=== PATIENT | male | born 1940 | race Caucasian/White ===

== ENCOUNTER → 2016-08-27 | Outpatient (CLI) | payer OTHER | LOC: BHLMT 10:30 | PROVIDERS: ATTEND Internal Medicine Interventional Cardiology | DX: I48.0 Paroxysmal atrial fibrillation (principal); I25.10 Atherosclerotic heart disease of native coronary artery without angina pectoris; I10 Essential (primary) hypertension; E78.00 Pure hypercholesterolemia, unspecified | CPT/HCPCS: 93005-PO ==

== ENCOUNTER → 2017-08-19 | Outpatient (CLI) | payer OTHER | LOC: BHLMT 14:00 | PROVIDERS: ATTEND Internal Medicine Interventional Cardiology | DX: I48.91 Unspecified atrial fibrillation (principal); I25.10 Atherosclerotic heart disease of native coronary artery without angina pectoris | CPT/HCPCS: 78452; 93017; A9500; J2785 ==

== ENCOUNTER 2017-08-31 08:38 | Day surgery (SDC) | payer OTHER, MEDICARE ==
[2017-08-31] MEDS ORDERED: BENZOCAINE UNIT DOSE SPRAY HURRICAINE MM ONE (08:46)
[2017-08-31] MEDS ORDERED: ATROPINE SULFATE 1 MG/10 ML SYR IVP ONE (08:46)
[2017-08-31] MEDS ORDERED: NS 500 ML IV ONE (08:46)
--- NOTE | 2017-08-31 09:03 | CPEKG ---
Heart Rate: 102 RR Interval: 588 QRSD Interval: 128 QT Interval: 428 QTC Interval: 558 QRS [place]: 66 T Wave Mobile: 13 EKG Severity - ABNORMAL ECG - EKG Impression: ATRIAL FIBRILLATION EKG Impression: RIGHT BUNDLE BRANCH BLOCK Electronically Signed By: Dandre Raymundo 31-Aug-2017 12:41:18
[2017-08-31 09:29] LABS: INR 2.44 (0.83-1.16); PROTIME(PATIENT) 26.5 SEC (12.0-15.0)
--- NOTE | 2017-08-31 09:51 | PDHPUP ---
History & Physical Update H&P update statement: This history and physical update is based on an assessment of the patient which was completed after admission or registration (within 24 hours), but prior to the surgery/procedure. H&P update: H&P reviewed & patient examined, no change in patient's condition since H&P completed
[2017-08-31] MEDS ORDERED: MIDAZOLAM 2 MG/2 ML VIAL ONE (10:01)
--- NOTE | 2017-08-31 10:01 | PDANEPAE ---
ANE History of Present Illness New onset atrial fibrillation ANE Past Medical History - Pulmonary History Hx Oxygen in Use at Home: No Hx Sleep Apnea: No ANE Review of Systems Review of Systems: ANE Patient History - Allergies Allergies/Adverse Reactions: No Known Allergies Allergy (Unverified 06/01/12 19:17) - Home Medications Home Medications: Aspirin [Aspirin 81mg (OTC)] 81 mg PO HS 06/01/12 [Last Taken 05/31/12 22:00] DILTIAZEM HCL [Cartia XT 120mg] 120 mg PO DAILY@1200 06/01/12 [Last Taken 12:00] Gluc Ruiz/Chondro Ruiz A/Vit C/Mn [Glucosamine 1,500 Complex Cap] 1 each PO 0800, 1800 06/01/12 [Last Taken 06/01/12 18:00] LEVOTHYROXINE SODIUM [Levoxyl 88mcg] 88 mcg PO DAILY06 06/01/12 [Last Taken 07/13 06:00] Lactobacillus Acidophilus [Acidophilus] 1 each PO DAILY 06/01/12 [Last Taken 07/13 08:00] Multivitamins [Multivitamin (OTC)] 1 each PO DAILY 06/01/12 [Last Taken 08:00] Niacin ER [Niaspan 500 mg (RX)] 500 mg PO HS 06/01/12 [Last Taken 05/31/12 22:00 ] [place]-3 Fatty Acids/Fish Oil [[facility] 3 1,000 mg Softgel] 1 each PO 0800,1800 07/13 [Last Taken 06/01/12 18:00] Pharmacist Completed 06-01-12 06/01/12 [Last Taken Unknown] Simvastatin [Zocor 20 mg (RX)] 20 mg PO DAILY18 06/01/12 [Last Taken 06/01/12 18 :00] Warfarin Sodium [Coumadin 2.5MG (*)] 2.5 mg PO SUTUWETHSA@1800 06/01/12 [Last Taken 06/01/12 18:00] Warfarin Sodium [Coumadin] 5 mg PO MOFR@1800 06/01/12 [Last Taken 05/30/12 18:00 ] - Smoking Hx Smoking Status: Former smoker ANE Labs/Vital Signs - Labs Result Diagrams: 08/31/17 09:10 - Vital Signs Height: 176.2 cm Weight: 79.9 kg ANE Physical Exam - Airway Neck exam: FROM Mallampati Score: Class 2 Mouth exam: normal dental/mouth exam, lee - Pulmonary Pulmonary: no respiratory distress, no rales or rhonchi, clear to auscultation - Cardiovascular Cardiovascular: irregularly irregular - ASA Status ASA Status: III ANE Anesthesia Plan Anesthesia Plan: GA with mask
[2017-08-31] MEDS ORDERED: PROPOFOL 200 MG/20 ML VIAL ONE (10:02)
[2017-08-31] MEDS ORDERED: NALOXONE HCL 0.4 MG/ML INJ IVP PRN (10:33)
--- NOTE | 2017-08-31 10:33 | POSTANESTH ---
Post Anesthetic Evaluation Cardiovascular Status: Normal, Stable Respiratory Status: Normal, Stable Level of Consciousness/Mental Status: Can Participate in Eval Pain Control: Adequate, Prn Tx Ordered Nausea/Vomiting Control: Adequate, Prn Tx Ordered Complications Possibly Related to Anesthesia: None Noted
--- NOTE | 2017-08-31 10:40 | PDTEE1 ---
MOIN Cardioversion Procedure Procedure: electrical cardioversion, transesophageal echo Indications: atrial fibrillation Consent: signed and in chart Anticoagulation: warfarin Procedural Details: Pads were placed in anterior-posterior position. MONI probe was advanced and standard images obtained. There is no evidence of left atrial or left atrial appendage thrombus. Synchronized cardioversion attempt #1: 200J Results: normal sinus rhythm Conclusions: successful MONI cardioversion
--- NOTE | 2017-08-31 10:48 | CPEKG ---
Heart Rate: 53 RR Interval: 1132 P-R Interval: 204 QRSD Interval: 124 QT Interval: 476 QTC Interval: 447 P [place]: 70 QRS [place]: 43 T Wave [place]: 16 EKG Severity - ABNORMAL ECG - EKG Impression: SINUS RHYTHM EKG Impression: RIGHT BUNDLE BRANCH BLOCK Electronically Signed By: Dandre Raymundo 31-Aug-2017 12:41:02
== END 2017-08-31 12:02 | disposition home or self-care (01) ==
LOC: FCATH 08:38
PROVIDERS: ATTEND Internal Medicine Interventional Cardiology
PROC: B245ZZ4 Ultrasonography of Left Heart, Transesophageal (ICD-10-PCS; principal; 2017-08-31)
PROC: 5A2204Z Restoration of Cardiac Rhythm, Single (ICD-10-PCS; principal; 2017-08-31)
DX: I48.1 Persistent atrial fibrillation (principal); I25.10 Atherosclerotic heart disease of native coronary artery without angina pectoris; E78.00 Pure hypercholesterolemia, unspecified; I10 Essential (primary) hypertension; Z95.5 Presence of coronary angioplasty implant and graft; Z79.01 Long term (current) use of anticoagulants
CPT/HCPCS: J2250; J2704

== ENCOUNTER 2017-11-15 06:54 | Inpatient (IN) | payer OTHER, MEDICARE ==
[2017-11-15] MEDS ORDERED: BENZOCAINE UNIT DOSE SPRAY HURRICAINE MM ONE (06:58)
[2017-11-15] MEDS ORDERED: ATROPINE SULFATE 1 MG/10 ML SYR IVP ONE (06:58)
[2017-11-15] MEDS ORDERED: NS 500 ML IV ONE (06:58)
[2017-11-15] MEDS ORDERED: MIDAZOLAM 2 MG/2 ML VIAL IVP ONE (06:58)
[2017-11-15] MEDS ORDERED: fentaNYL 100 MCG/2 ML INJ IVP ONE (06:58)
--- NOTE | 2017-11-15 07:13 | CPEKG ---
Heart Rate: 63 RR Interval: 952 P-R Interval: 168 QRSD Interval: 106 QT Interval: 440 QTC Interval: 451 P [place]: 66 QRS [place]: 58 T Wave [place]: 4 EKG Severity - ABNORMAL ECG - EKG Impression: SINUS RHYTHM EKG Impression: MULTIPLE VENTRICULAR PREMATURE COMPLEXES EKG Impression: INCOMPLETE RIGHT BUNDLE BRANCH BLOCK EKG Impression: NONSPECIFIC T ABNORMALITIES, LATERAL LEADS Electronically Signed By: Dandre Raymundo 15-Nov-2017 08:46:12
[2017-11-15 07:38] LABS: INR 2.39 (0.83-1.16); PROTIME(PATIENT) 26.1 SEC (12.0-15.0)
[2017-11-15] MEDS ORDERED: Herbals/Supplements -Info Only PO SCH (09:00)
[2017-11-15 09:09] LABS: PLATELET COUNT 183 10^3/uL (150-400)
[2017-11-15] MEDS: MULTIVITAMINS 1 EACH TAB PO SCH (10:31)
[2017-11-15] MEDS: SOTALOL HCL 80 MG TAB PO SCH ×2 (10:31→21:30)
[2017-11-15] MEDS: OMEGA-3 FATTY ACIDS 1,000 MG CAP PO SCH (10:31)
--- NOTE | 2017-11-15 12:36 | CPEKG ---
Heart Rate: 54 RR Interval: 1111 P-R Interval: 168 QRSD Interval: 108 QT Interval: 472 QTC Interval: 448 P [place]: 70 QRS [place]: 56 T Wave [place] [employer]: 19 EKG Severity - ABNORMAL ECG - EKG Impression: SINUS RHYTHM EKG Impression: INCOMPLETE RIGHT BUNDLE BRANCH BLOCK Electronically Signed By: Dandre Raymundo 15-Nov-2017 15:15:37
--- NOTE | 2017-11-15 13:38 | GHP ---
[f rep st] HISTORY AND PHYSICAL DATE OF ADMISSION: 11/15/2017 REASON FOR ADMISSION: 1. Paroxysmal atrial fibrillation. 2. Planned direct current cardioversion. 3. Spontaneous cardioversion to sinus rhythm. 4. Anticoagulated on warfarin. HISTORY OF PRESENT ILLNESS: The patient was seen in the office on October 06, 2017, where he and Dr. Raymundo visited about possible treatment options for his paroxysmal atrial fibrillation. Dr. Raymundo did RF abla tion in 2007. He also did flutter ablation at that time. Patient has continued to experience paroxy smal atrial fib despite being on flecainide. He does become symptomatic and experiences fatigue and heart pounding when he goes into atrial fibrillation. He recently had a DC cardioversion and reverte d back to atrial fib within 4 days. He did feel better when he was in sinus rhythm. Dr. Raymundo at that visit offered to have him come into the hospital and retry DC cardioversion and then start sotalol m anagement. They also discussed possible ablation or surgical ablation. Today on arrival, he had rev erted to sinus rhythm. Dr. Raymundo decided to admit him for sotalol loading. He and his are in agr eement with this plan. He, therefore, was admitted for the initiation of sotalol loading. PAST MEDICAL HISTORY: Coronary artery disease hypercholesterolemia, hypertension, paroxysmal atrial fibrillation, prostate cancer. PAST SURGICAL HISTORY: 1. Cochlear implants. 2. Inguinal hernia repair. 3. Prostate ectomy. MEDICATIONS: Prior to hospitalization: Acidophilus oral capsule, aspirin 81 mg extended release, di ltiazem 240 mg extended release daily, fish oil 1000 mg daily, flecainide 100 mg, glucosamine/chondro itin 750 to 600 mg tablets, takes Levoxyl 112 mcg daily, multivitamin, simvastatin 20 mg daily, warfa rin 5 mg daily. Upon admission to the hospital, flecainide is discontinued. He will be started on s otalol 120 mg twice daily. ALLERGIES: No known allergies. SOCIAL HISTORY: He has 2 children. He does drink coffee. He exercises regularly. He does not use tobacco or illicit drugs. REVIEW OF SYSTEM: CONSTITUTIONAL: He does admit to fatigue. He has no fever or weight gain. CARDI OVASCULAR: He has irregular heart beats. He has no syncope, dyspnea with exertion, or lower extremi ty edema. RESPIRATORY: Denies shortness of breath. GASTROINTESTINAL: No nausea, vomiting or reflu x. NEUROLOGIC: No altered mental status. No muscular weakness or numbness. PSYCHIATRIC:. No diff iculty sleeping. PHYSICAL EXAMINATION: VITAL SIGNS: 130/80, heart rate 88 and regular. Last weight recorded at the office 79.93. CONSTITUTIONAL: He is alert and oriented and in no distress. RESPIRATORY: No shortn ess of breath. His breathing is nonlabored. CARDIAC: Heart rate regular. No murmurs, rubs, or gal lops. EXTREMITIES: No peripheral edema noted. PSYCHIATRIC: He has normal mood and affect. LABORATORY/DIAGNOSTIC DATA: Past cardiac workup: In July of 2017, he did have a nuclear stress palma t that showed no significant reversible defect suggestive of ischemia. He was in atrial fibrillation at time of that study. EKG on admission shows regular sinus rhythm with incomplete right bundle branch block. Laboratories on admission: INR 2.39. Sodium 141, potassium 3.8, creatinine 0.9, magnesium 2.3. PLAN: 1. He will be admitted for sotalol loading starting dose 120 mg twice daily. 2. He will have EKGs 2 hours after each dose prior to the next dose of sotalol. 3. Monitor closely his heart rate and blood pressure. 4. We will plan 2 nights in the hospital for appropriate duration of sotalol loading. 5. At this time, he currently is stable with no complaints. /[id number]/MODL
--- NOTE | 2017-11-15 15:54 | PDMN ---
Medical Necessity Medical necessity: est los>2mn for symptomatic PAF on flecainide, w/fatigue and heart pounding; requires Sotalol loading with ECG's 2 hrs post dose, and close monitoring of HR and blood pressure; comorbid CAD, HLD, HTN, hx recent CV, and prostate cancer; per order and H&P 11/15/17
[2017-11-15] MEDS ORDERED: WARFARIN SODIUM 5 MG TAB PO SCH (21:00)
[2017-11-15] MEDS ORDERED: NON-FORMULARY NEW DRUG (Simvastatin [Zocor 20 Mg] 20 MG) PO SCH (21:00)
[2017-11-15] MEDS: ASPIRIN 81 MG CHEWABLE TAB PO SCH (21:34)
[2017-11-15] MEDS: GLUCOSAMINE/CHONDROITIN CAP PO SCH (21:34)
[2017-11-15] MEDS: ATORVASTATIN CALCIUM 10 MG TAB PO SCH (21:35)
--- NOTE | 2017-11-15 23:37 | CPEKG ---
Heart Rate: 48 RR Interval: 1250 P-R Interval: 160 QRSD Interval: 106 QT Interval: 496 QTC Interval: 444 P [place]: 73 QRS [place]: 70 T Wave [place]: 33 EKG Severity - ABNORMAL ECG - EKG Impression: SINUS BRADYCARDIA EKG Impression: INCOMPLETE RIGHT BUNDLE BRANCH BLOCK EKG Impression: ABNRM R PROG, CONSIDER ASMI OR LEAD PLACEMENT Electronically Signed By: Mahnaz Villarreal 16-Nov-2017 04:44:01
[2017-11-16 04:46] LABS: INR 2.55 (0.83-1.16); PROTIME(PATIENT) 27.4 SEC (12.0-15.0)
[2017-11-16] MEDS: LEVOTHYROXINE 112 MCG TAB PO SCH (06:58)
--- NOTE | 2017-11-16 10:57 | PDCARPN ---
Cardiology Progress Note Chief Complaint: ATRIAL FIBRILLATION Assessment/Plan: Assessment: Admit yesterday for Sotalol load. Tolerating fairly well. His HR has dropped into the 40 to 50's, and he does feel a bit lightheaded with position changes. Consulted with Dr Raymundo and he has advised to decrease his dose to 80 mg BID. He has been up ambulating with no problems. Will continue to monitor closely on telemetry. EKG this AM showed QTc 444. Plan: If his HR increases on lower Sotalol dose, QTc stays in range, and he has no dizziness, will plan for DC tomorrow. 11/16/17 10:52 Subjective: When I get up from sitting, I feel a little lightheaded. Reviewed/Discussed With: family, multidisciplinary team (Dr Raymundo) Time Spent with Patient: greater than 25 minutes (Direct patient evaluation, consulting case with Dr Raymundo, and coordination Care.) Time Spent with Patient: Greater than 25 minutes spent on this patients care, greater than 50% of time spent counseling, educating, and coordinating care regarding the above mentioned plan. Objective: Vital Signs (8 Hrs) Temp Pulse Resp BP Pulse Ox 11/16/17 07:33 36.6 C 47 L 12 152/81 H 95 11/16/17 04:00 36.5 C 50 L 16 132/72 H 93 Intake/Output (24 Hrs) 11/15/17 11/16/17 11/17/17 05:59 05:59 05:59 Intake Total 1080 Balance 1080 Intake: Oral (ml) 1080 Other: Weight 79.379 kg Number of Voids Toilet 2 Number of Stools Toilet 1 Result Diagrams: 11/15/17 07:20 11/16/17 03:58 - Physical Exam Constitutional: no apparent distress Cardiovascular: regular rate and rhythm, no murmurs, no rubs Respiratory: clear to auscultate bilat, no crackles, no wheezes Skin: warm, no edema Musculoskeletal: other Neurologic: AAOx3 Psychiatric: cooperative, interactive ICD10 Worksheet Patient Problems: Problems Problem Status Onset Atrial fibrillation and flutter Acute
[2017-11-16] MEDS: MULTIVITAMINS 1 EACH TAB PO SCH (11:59)
[2017-11-16] MEDS: SOTALOL HCL 80 MG TAB PO SCH ×2 (12:00→22:00)
[2017-11-16] MEDS: OMEGA-3 FATTY ACIDS 1,000 MG CAP PO SCH (12:00)
--- NOTE | 2017-11-16 13:54 | CPEKG ---
Heart Rate: 49 RR Interval: 1224 P-R Interval: 160 QRSD Interval: 110 QT Interval: 484 QTC Interval: 437 P [place]: 67 QRS [place]: 45 T Wave [place]: -1 EKG Severity - ABNORMAL ECG - EKG Impression: SINUS BRADYCARDIA EKG Impression: INCOMPLETE RIGHT BUNDLE BRANCH BLOCK Electronically Signed By: Dandre Raymundo 16-Nov-2017 16:27:26
--- NOTE | 2017-11-16 14:51 | ASMTCMCOM ---
CM Note CM Note Notes: 11/16/2017 Case Management Note Met w/pt and Guillermo [phone] to discuss d/c needs. Pt admitted for sotolol loading. Pt has 2 supportive children who live in [place]. Pt daughter Karlee [phone]. Pt son Benjamin [phone]. Pt and are independent with ADL's. They both still drive and are able to take care of the lawn or snow removal independently. There are no case management d/c needs identified. Case Management d/c poc: independent with follow up as directed. Case Management available if needs change. Date Signed: 11/16/2017 02:50 PM Electronically Signed By:Melissa Sosa RN
[2017-11-16] MEDS ORDERED: WARFARIN SODIUM 2.5 MG TAB PO SCH (21:00)
[2017-11-16] MEDS: ATORVASTATIN CALCIUM 10 MG TAB PO SCH (21:52)
[2017-11-16] MEDS: ASPIRIN 81 MG CHEWABLE TAB PO SCH (21:52)
[2017-11-16] MEDS: GLUCOSAMINE/CHONDROITIN CAP PO SCH (21:52)
--- NOTE | 2017-11-17 00:05 | CPEKG ---
Heart Rate: 48 RR Interval: 1250 P-R Interval: 160 QRSD Interval: 106 QT Interval: 492 QTC Interval: 440 P [place]: 72 QRS [place]: 65 T Wave [place]: 31 EKG Severity - ABNORMAL ECG - EKG Impression: SINUS BRADYCARDIA EKG Impression: INCOMPLETE RIGHT BUNDLE BRANCH BLOCK Electronically Signed By: Dandre Raymundo 17-Nov-2017 11:01:56
[2017-11-17] MEDS: SOTALOL HCL 80 MG TAB PO SCH ×2 (01:34→09:45)
[2017-11-17 04:26] LABS: INR 2.65 (0.83-1.16); PROTIME(PATIENT) 28.2 SEC (12.0-15.0)
[2017-11-17] MEDS: LEVOTHYROXINE 112 MCG TAB PO SCH (07:08)
[2017-11-17] MEDS: MULTIVITAMINS 1 EACH TAB PO SCH (08:19)
[2017-11-17] MEDS: OMEGA-3 FATTY ACIDS 1,000 MG CAP PO SCH (08:19)
--- NOTE | 2017-11-17 11:53 | CPEKG ---
Heart Rate: 47 RR Interval: 1277 P-R Interval: 164 QRSD Interval: 106 QT Interval: 488 QTC Interval: 432 P [place]: 72 QRS [place]: 52 T Wave [place]: 3 EKG Severity - ABNORMAL ECG - EKG Impression: SINUS BRADYCARDIA EKG Impression: INCOMPLETE RIGHT BUNDLE BRANCH BLOCK Electronically Signed By: Dandre Raymundo 17-Nov-2017 16:52:35
[2017-11-17 12:04] VITALS: BP 139/78
--- NOTE | 2017-11-18 00:55 | GDS ---
[f rep st] DISCHARGE SUMMARY ADMIT DIAGNOSES: 1. Atrial fibrillation. 2. Planned sotalol loading. DISCHARGE DIAGNOSES: 1. Atrial fibrillation. 2. Bradycardia. 3. Aborted sotalol load. COURSE OF HOSPITALIZATION: This gentleman was seen by Dr. Raymundo in the clinic, having failed several a ntiarrhythmic medications. It was decided to try sotalol with observation in the hospital. The miriam ent was in agreement with this plan. He was started on sotalol 120 mg twice daily. His heart rates did drop down into the 40s and 50s after the first 2 doses. His sotalol dose was then decreased to 8 0 mg b.i.d. on November 16, 2017. His heart rates remained in the 40s and 50s with EKGs falling in range for the QTc. On November 17, 2017, his heart rates remained in the 40s. He had developed diarrhea, whi ch is a possible side effect from sotalol. He has a history of diverticula disease, and it was decid ed to stop the sotalol. His heart rates remained in the 40s and 50s and was asymptomatic for symptom s of dizziness and lightheadedness. He did ambulate with no problems. It was decided to resume dilt iazem 240 mg daily, and he will follow up with Dr. Raymundo in 3 weeks. At time of discharge, he was feel ing well with no problems. Final EKG was stable. DISCHARGE MEDICATIONS: He has no allergies. He will go home on Zocor 20 mg daily. Aspirin 81 mg da shawna at bedtime. Coumadin 2.5 mg Wednesday, , Wednesday, and Coumadin 5 mg on Wednesday, Wednesday, , Wednesday. Multivitamin 1 daily. Herbal supplements daily. Glucosamine chondroitin 1 at bedt donn. Synthroid 112 mcg daily. [place]-3 fish oil 1000 mg daily. Cartia XT 240 mg daily. Flecainide was discontinued. EKG: On 11/17/2017, at 11:51, heart rate 47. Impression: Sinus bradycardia with incomplete right b undle branch block. DISCHARGE PLAN: 1. Resume diltiazem XL 240 mg daily. INR today was 2.65. He should have his INR rechecked norma delgado to his current schedule. 2. Follow up with Dr. Raymundo in 1 week. The office will call to make that appointment. At this time, he currently is stable for discharge. /[id number]/MODL
[2017-11-18] MEDS ORDERED: DILTIAZEM XR 240 MG CAP PO SCH (09:00)
== END 2017-11-17 14:44 | disposition home or self-care (01) | DRG 309 ==
LOC: FCATH 06:54 → F2W 06:59 → OBSVTOIN 08:43 → F2W 10:05
PROVIDERS: ADMIT Internal Medicine Cardiovascular Disease; ATTEND Internal Medicine Cardiovascular Disease
DX: I48.0 Paroxysmal atrial fibrillation (principal); K52.1 Toxic gastroenteritis and colitis; Z51.81 Encounter for therapeutic drug level monitoring; T44.7X5A Adverse effect of beta-adrenoreceptor antagonists, initial encounter; R00.1 Bradycardia, unspecified; I45.19 Other right bundle-branch block; I25.10 Atherosclerotic heart disease of native coronary artery without angina pectoris; I10 Essential (primary) hypertension; E78.00 Pure hypercholesterolemia, unspecified; Z85.46 Personal history of malignant neoplasm of prostate

== ENCOUNTER 2017-12-24 17:45 | Observation (INO) | payer OTHER, MEDICARE ==
--- NOTE | 2017-12-24 18:10 | CPEKG ---
Heart Rate: 71 RR Interval: 845 P-R Interval: 140 QRSD Interval: 96 QT Interval: 400 QTC Interval: 435 P [place]: 79 QRS [place]: 227 T Wave [place]: 47 EKG Severity - OTHERWISE NORMAL ECG - EKG Impression: SINUS RHYTHM EKG Impression: Complete heart block Electronically Signed By: Nathanael Lee 24-Dec-2017 18:27:46
[2017-12-24] MEDS ORDERED: NS 1,000 ML IV ONE (18:34)
--- NOTE | 2017-12-24 18:41 | EDPHY ---
H & P Stated Complaint: L sided CP off and on x 1 week Time Seen by Provider: 12/24/17 18:15 HPI/ROS: CHIEF COMPLAINT: Chest pain HISTORY OF PRESENT ILLNESS: The patient is a 76-year-old man who comes to the emergency department complaining of chest pain while exerting himself doing yd work today. It is now improved. No shortness of breath. No cough. No nausea vomiting or GI symptoms. No diaphoresis. He has a history of atrial fibrillation and recently switched from Coumadin to Eliquis 4 days ago. Also has a history of 4 stents the most recent done in 2002. He [address] Mahajan and Dr. Raymundo. He has not had any palpitations. He does not have a pacemaker. REVIEW OF SYSTEMS: Constitutional: denies: chills, fever, recent illness, recent injury EENTM: denies: blurred vision, double vision, nose congestion Respiratory: denies: cough, shortness of breath Cardiac: See HPI Gastrointestinal/Abdominal: denies: abdominal pain, diarrhea, nausea, vomiting, blood streaked stools Genitourinary: denies: dysuria, frequency, hematuria, pain Musculoskeletal: denies: joint pain, muscle pain Skin: denies: lesions, rash, jaundice, bruising Neurological: denies: headache, numbness, paresthesia, tingling, dizziness, weakness Hematologic/Lymphatic: denies: blood clots, easy bleeding, easy bruising Immunologic/allergic: denies: HIV/AIDS, transplant EXAM: GENERAL: Well-appearing, well-nourished and in no acute distress. HEAD: Atraumatic, normocephalic. EYES: Pupils equal round and reactive to light, extraocular movements intact, sclera anicteric, conjunctiva are normal. ENT: TMs normal, nares patent, oropharynx clear without exudates. Moist mucous membranes. NECK: Normal range of motion, supple without lymphadenopathy or JVD. LUNGS: Breath sounds clear to auscultation bilaterally and equal. No wheezes rales or rhonchi. HEART: Irregular without murmurs, rubs or gallops. ABDOMEN: Soft, nontender, normoactive bowel sounds. No guarding, no rebound. No masses appreciated. BACK: No CVA tenderness, no spinal tenderness, step-offs or deformities EXTREMITIES: Normal range of motion, no pitting or edema. No clubbing or cyanosis. NEUROLOGICAL: Cranial nerves II through XII grossly intact. Normal speech, normal gait. 5/5 strength, normal movement in all extremities, normal sensation PSYCH: Normal mood, normal affect. SKIN: Warm, dry, normal turgor, no visible rashes or lesions. Source: Patient Exam Limitations: No limitations - Personal History Current Tetanus Diphtheria and Acellular Pertussis (TDAP): Yes Tetanus Vaccine Date: unsure of date - Medical/Surgical History Hx Cardiac Disease: Yes Other PMH: stents. cardiovasc disease. afib. prostatectomy for ca - Family History Significant Family History: No pertinent family hx - Social History Smoking Status: Former smoker Alcohol Use: Sober Constitutional: Initial Vital Signs Temperature (C) 36.5 C 12/24/17 17:47 Heart Rate 64 12/24/17 17:47 Respiratory Rate 16 12/24/17 17:47 Blood Pressure 132/79 H 12/24/17 17:47 O2 Sat (%) 97 12/24/17 17:47 Allergies/Adverse Reactions: No Known Allergies Allergy (Verified 12/24/17 17:47) Home Medications: Medication Instructions Recorded Aspirin [Aspirin 81mg (*)] 81 mg PO HS 06/01/12 Simvastatin [Zocor 20 mg] 20 mg PO HS 06/01/12 Diltiazem HCl [Cartia XT 240mg] 240 mg PO DAILY 11/15/17 Apixaban [Eliquis] 5 mg PO BID 12/24/17 Her[place]/Supplements -Info Only 1 ea PO DAILY 12/24/17 Levothyroxine [Synthroid 112 mcg 112 mcg PO DAILY06 12/24/17 (*)] Multivitamins [Multivitamin (*)] 1 each PO DAILY 12/24/17 [place]-3 Fatty Acids [Fish Oil 1000 1,000 mg PO DAILY 12/24/17 mg (*)] Nitroglycerin 0.4 mg SL Q5M PRN #30 tab 12/25/17 Medical Decision Making - Diagnostics EKG Interpretation: An EKG obtained and was read and documented in trace view. Please see trace view for full reading and report. Irregular rhythm, multiple extra P waves consistent with complete heart block verses slow a flutter ED Course/Re-evaluation: 6:45 p.m. The patient's EKG shows heart block versus slow atrial flutter. Several of the P waves are conjugate to the QRS but there are also several others that do not. His troponin is negative. I spoke with money from [employer]. She agrees with admission and monitoring for possible pacemaker placement. Will paged hospital service. 7:05 p.m. I discussed the case with Dr. Yung who agrees with admission. Differential Diagnosis: Partial list of the Differential diagnosis considered include but were not limited to; complete heart block, atrial fibrillation, acute coronary disease and although unlikely based on the history and physical exam, I also considered PE, is infection, dissection. Critical Care Time: Critical care time spent by me, Dr. Lee exclusive with this patient was 35 minutes, exclusive of the PA time exclusive of procedures. The organ system that was at risk was cardiovascular and I gave diagnostics, consultation and admission to prevent worsening of the patient's condition - Data Points Laboratory Results: Laboratory Results 12/24/17 18:03 12/24/17 18:00 Medications Given: Discontinued Medications Apixaban (Eliquis) 5 mg PO BID NANCY Stop: 06/23/18 00:14 Last Admin: 12/25/17 10:17 Dose: 5 mg Aspirin (Aspirin) 81 mg PO HS NANCY Stop: 06/23/18 00:14 Last Admin: 12/25/17 00:20 Dose: 81 mg Atorvastatin Calcium (Lipitor) 10 mg PO DAILY NANCY Stop: 06/23/18 08:59 Last Admin: 12/25/17 09:45 Dose: 10 mg Diltiazem HCl (Dilacor Xr) 240 mg PO DAILY NANCY Stop: 06/23/18 08:59 Last Admin: 12/25/17 09:45 Dose: 240 mg Sodium Chloride (Ns) 1,000 mls @ 0 mls/hr IV EDNOW ONE; Wide Open PRN Reason: Protocol Stop: 12/24/17 18:35 Last Admin: 12/24/17 19:00 Dose: 1,000 mls Levothyroxine Sodium (Synthroid) 112 mcg PO DAILY06 [facility] Stop: 06/23/18 05:59 Last Admin: 12/25/17 09:45 Dose: 112 mcg Point of Care Test Results: Chemistry 12/24/17 18:05 POC Troponin I 0.04 ng/mL ng/mL (0.00-0.08) Departure - Departure Disposition: [facility] Inpatient Acute Clinical Impression: Chest pain Qualifiers: Chest pain type: unspecified Qualified Code(s): R07.9 - Chest pain, unspecified Condition: Good
[2017-12-24 18:46] LABS: CREATINE KINASE 71 IU/L (0-224)
[2017-12-24 18:49] LABS: INR 1.21 (0.83-1.16); PROTIME(PATIENT) 15.5 SEC (12.0-15.0)
[2017-12-24 19:06] LABS: PLATELET COUNT 272 10^3/uL (150-400)
[2017-12-24] MEDS ORDERED: ONDANSETRON 4 MG/2 ML VIAL IVP PRN (22:30)
[2017-12-24] MEDS ORDERED: ACETAMINOPHEN 325 MG TAB PO PRN (22:30)
[2017-12-24] MEDS ORDERED: ONDANSETRON DISINTEGRATING 4 MG TAB PO PRN (22:30)
[2017-12-25] MEDS ORDERED: ASPIRIN 81 MG CHEWABLE TAB PO SCH (00:15)
[2017-12-25] MEDS: APIXABAN 5 MG TAB PO SCH ×2 (00:20→10:17)
--- NOTE | 2017-12-25 00:45 | PDGENHP ---
History and Physical - Chief Complaint Chest pain - History of Present Illness 76 yo M w/ hx of CAD, pAF, HTN, and hypothyroid presents with chest pain. Patient describes chest pain starting since the beginning of this week. He describes this as left sided and associated with exertion. He denies radiation of pain or associated symptoms such as SOB, dizziness, and diaphoresis. He is chest pain free at the time of my evaluation. Work up in the ED notable for negative troponin and ECG with likely heart block, which may be causative. Review of records reveals history of stents to all 3 major coronary territories between 1999 and 2002. Cardiac cath in 2012 demonstrated patency of all stented sties. Nuclear stress test performed 09/15 revealed no areas of reversible ischemia. He also has a history of symptomatic, difficult to control AF. He has failed flecainide, amiodarone, and sotalol as well as previous cardioversion attempts. He has had two prior RF ablation procedures and is currently discussing CB ablation with Dr. Raymundo. Case discussed with Dr. Yung, previous records reviewed including most recent progress note from Dr. Raymundo dated 12/09/17. History Information - Allergies/Home Medication List Allergies/Adverse Reactions: No Known Allergies Allergy (Verified 12/24/17 17:47) Home Medications: Aspirin [Aspirin 81mg (*)] 81 mg PO HS 06/01/12 [Last Taken 12/23/17] Simvastatin [Zocor 20 mg] 20 mg PO HS 06/01/12 [Last Taken 12/23/17] Diltiazem HCl [Cartia XT 240mg] 240 mg PO DAILY 11/15/17 [Last Taken 12/24/17 08 :00] Apixaban [Eliquis] 5 mg PO BID 12/24/17 [Last Taken 12/24/17 08:00] Herbals/Supplements -Info Only 1 ea PO DAILY 12/24/17 [Last Taken 12/24/17] Levothyroxine [Synthroid 112 mcg (*)] 112 mcg PO DAILY06 12/24/17 [Last Taken ] Multivitamins [Multivitamin (*)] 1 each PO DAILY 12/24/17 [Last Taken 12/24/17] [place]-3 Fatty Acids [Fish Oil 1000 mg (*)] 1,000 mg PO DAILY 12/24/17 [Last Taken 12/24/17] I have personally reviewed and updated: family history, medical history - Past Medical History atrial fibrillation, coronary artery disease, hypertension - Surgical History Reports: coronary stent - Family History Positive for: CAD - Social History Smoking Status: Former smoker Alcohol Use: Sober Review of Systems Review of Systems: ROS: 10pt was reviewed & negative except for what was stated in HPI & below Physical Exam Physical Exam: Temp Pulse Resp BP Pulse Ox 36.6 C 61 20 118/70 94 12/24/17 23:13 12/24/17 23:13 12/24/17 23:13 12/24/17 23:13 12/24/17 23:13 Constitutional: no apparent distress, not in pain Eyes: PERRL, EOMI Ears, Nose, Mouth, Throat: moist mucous membranes, no oral mucosal ulcers Cardiovascular: regular rate and rhythym, no murmur, rub, or gallop Respiratory: no respiratory distress, clear to auscultation Gastrointestinal: normoactive bowel sounds, soft, non-tender abdomen Skin: warm, normal color Musculoskeletal: full muscle strength, no muscle tenderness Neurologic: AAOx3, CN II-XII Intact Psychiatric: interacting appropriately, not anxious Lab Data & Imaging Review 12/24/17 18:03 12/24/17 18:00 WBC 9.78 10^3/uL (3.80-9.50) H 12/24/17 18:03 RBC 4.97 10^6/uL (4.40-6.38) 12/24/17 18:03 Hgb 15.8 g/dL (13.7-17.5) 12/24/17 18:03 Hct 45.7 % (40.0-51.0) 12/24/17 18:03 MCV 92.0 fL (81.5-99.8) 12/24/17 18:03 MCH 31.8 pg (27.9-34.1) 12/24/17 18:03 MCHC 34.6 g/dL (32.4-36.7) 12/24/17 18:03 RDW 13.1 % (11.5-15.2) 12/24/17 18:03 Plt Count 272 10^3/uL (150-400) 12/24/17 18:03 MPV 10.3 fL (8.7-11.7) 12/24/17 18:03 Neut % (Auto) 71.6 % (39.3-74.2) 12/24/17 18:03 Lymph % (Auto) 17.4 % (15.0-45.0) 12/24/17 18:03 [place] % (Auto) 9.3 % (4.5-13.0) 12/24/17 18:03 Eos % (Auto) 0.9 % (0.6-7.6) 12/24/17 18:03 Baso % (Auto) 0.2 % (0.3-1.7) L 12/24/17 18:03 Nucleat RBC Rel Count 0.0 % (0.0-0.2) 12/24/17 18:03 Absolute Neuts (auto) 7.00 10^3/uL (1.70-6.50) H 12/24/17 18:03 Absolute Lymphs (auto) 1.70 10^3/uL (1.00-3.00) 12/24/17 18:03 Absolute Monos (auto) 0.91 10^3/uL (0.30-0.80) H 12/24/17 18:03 Absolute Eos (auto) 0.09 10^3/uL (0.03-0.40) 12/24/17 18:03 Absolute Basos (auto) 0.02 10^3/uL (0.02-0.10) 12/24/17 18:03 Absolute Nucleated RBC 0.00 10^3/uL (0-0.01) 12/24/17 18:03 Immature Gran % 0.6 % (0.0-1.1) 12/24/17 18:03 Immature Gran # 0.06 10^3/uL (0.00-0.10) 12/24/17 18:03 PT 15.5 SEC (12.0-15.0) H 12/24/17 18:03 INR 1.21 (0.83-1.16) H 12/24/17 18:03 APTT 33.6 SEC (23.0-38.0) 12/24/17 18:03 Sodium 135 mEq/L (135-145) 12/24/17 18:00 Potassium 4.6 mEq/L (3.3-5.0) 12/24/17 18:00 Chloride 104 mEq/L (97-110) 12/24/17 18:00 Carbon Dioxide 23 mEq/l (22-31) 12/24/17 18:00 Anion Gap 8 mEq/L (8-16) 12/24/17 18:00 BUN 29 mg/dL (7-23) H 12/24/17 18:00 Creatinine 1.0 mg/dL (0.7-1.3) 12/24/17 18:00 Estimated GFR > 60 12/24/17 18:00 Glucose 82 mg/dL (70-100) 12/24/17 18:00 Calcium 9.6 mg/dL (8.5-10.4) 12/24/17 18:00 Creatine Kinase 71 IU/L (0-224) 12/24/17 18:03 CK-MB (CK-2) Fraction 3.52 ng/mL (0.00-4.55) 12/24/17 18:03 POC Troponin I 0.04 ng/mL (0.00-0.08) 12/24/17 18:05 Imaging Review: Imaging Impressions Chest X-Ray 12/24/17 18:34 Impression: No acute findings in the chest. Visualized and Interpreted EKG results: Yes EKG Interpretation: Positive for: normal sinsus rhythm, other (?2nd degree, type II heart block) Assessment & Plan Assessment: 76 yo M w/ hx of CAD, pAF, HTN, and hypothyroid presents with chest pain. Plan: 1. Chest pain - 1 week of exertional chest pain without associated symptoms. Troponin negative on admission making ACS less likely noting 1 week of symptoms. He had a nuclear stress test in August that showed no signs of reversible ischemia. ECG(personally interpreted) possibly suggestive of 2nd degree, type II heart block noting grouped beating. It is possible intermittent heart block is responsible for his symptoms. - Admit to PCU for observation - Trend cardiac enzymes, monitor on telemetry - Will obtain TTE since he has not had one since 2007 - Cardiology consulted, will defer next step (repeat nuc stress vs. cath vs. pacemaker) to their judgement - Maintain NPO 2. AF - Symptomatic and difficult to control in the past; he is currently on diltiazem and apixaban. He has failed amiodarone, flecainide, and did not tolerate sotalol. He has hx of 2 RF ablations with limited success and is planning CB ablation with Dr. Raymundo in the near future. - Monitor on telemetry - Continue home medications - Cardiology consulted 3. Hx CAD - [facility] history of stents to all 3 major coronary territories between 1999 and 2002. Cardiac cath in 2012 demonstrated patency of all stented sties. Nuclear stress test performed 09/15 revealed no areas of reversible ischemia. - Acute work-up as above - Continue ASA, statin 4. Hypothyroid - Continue LTX. Diet - NPO Code - Full Ppx - apixaban Dispo - Admit under observation status
[2017-12-25 04:02] LABS: PLATELET COUNT 216 10^3/uL (150-400)
[2017-12-25] MEDS ORDERED: LEVOTHYROXINE 112 MCG TAB PO SCH (06:00)
[2017-12-25] MEDS ORDERED: DILTIAZEM XR 240 MG CAP PO SCH (09:00)
[2017-12-25] MEDS ORDERED: ATORVASTATIN CALCIUM 10 MG TAB PO SCH (09:00)
--- NOTE | 2017-12-25 09:35 | ASMTCMCOM ---
CM Note CM Note Notes: CM reviewed chart for D/C planning. Pt is a 76 y/o male with hx of CAD, pAF, HTN and hypothroid presented at the ED with 1 week of exertional chest pain. Hx of stents to all 3 major coronary territoriesbtwn 1999 and 2002. Pt is retired and lives at home with his , Leyla #[phone]. Pt was most recently D/Sami from the hospital 11/17/17 having tried Solatol under observation. There were no CM need identified at that time. CM to follow. D/C Plan: TBD Date Signed: 12/25/2017 09:34 AM Electronically Signed By:Dinorah Joe
--- NOTE | 2017-12-25 10:32 | ECHO ---
[email or web address] [address] [address] Main: [phone] Fax: Transthoracic Echocardiogram Name: NOHEMI URIBE MR#: [id number] Study Date: 12/25/2017 Study Time: 07:23 AM Date of : 1940 Age: 76 year(s) Height: 190.5 cm (75 in.) Weight: 75.75 kg (167 lb.) BSA: 2.03 m2 Gender: Male Examination: Echo Indication: Chest Pain, hx stents/A fib Image Quality: Contrast: Requested by: Jean-Claude Garcia BP: 117 mmHg/64 mmHg Heart Rate: Rhythm: Indication: Chest Pain, hx stents/A fib Procedure Staff Purchasing Buyer: Carol Booth RDCS Reading Physician: Bethel Pinzon MD Requesting Provider: Conclusions: 1)Normal LV size and systolic function with a LVEF of 55% and normal wall motions 2)Moderate diastolic dysfunction noted. 3)Mild to moderate left atrial and mild right atrial enlargement(s) noted. 4)Moderate aortic valve sclerosis without . Mild-moderate AI noted. 5)Moderate to severe MR without MV prolapse. 6)Moderate TR with upper limits of normal PA pressures. 7)Mildly enlarged ascending thoracic aorta 3.8cm. Measurements: Chambers Valvular Assessment AV/MV Valvular Assessment TV/PV Normal Normal Normal Name Value Range Name Value Range Name Value Range Ao Kaela (MM): 3.8 cm (2.2 cm-3.7 AV Vmax: 1.20 m/s (1 m/s-1.7 TR Vmax: 2.66 mm/s ( - ) cm) m/s) TR PGmax: 28 mmHg ( - ) IVSd (2D): 0.8 cm (0.6 cm-1.1 AV meanP mmHg ( - ) syst. PAP: 33 mmHg ( - ) cm) ALO (VTI): 2.3 cm ( - ) LVDd (2D): 5.1 cm (4.2 cm-5.9 MV E Vmax: 0.67 m/s ( - ) cm) MV A Vmax: 0.25 m/s ( - ) LVDs (2D): 3.4 cm (2.1 cm-4 MV E/A: 2.68 ( - ) cm) MV meanP mmHg ( - ) LVPWd (2D): 0.9 cm (0.6 cm-1 cm) MVA (Vmax): 2.8 m/s ( - ) LVOTd 2.5 cm 2.5 cm mm LVEF (MOD4): 55 % (>=55 %) Continued Measurements: Chambers Valvular Assessment AV/MV Valvular Assessment TV/PV Name Value Name Value Name Value LADs: 3.8 cm MV Annulus: 4.1 cm CVP (est.): 5 mmHg Patient: NOHEMI URIBE Study Date: 12/25/2017 Page 1 of 2 07:23 AM LADs Lon.3 cm MV E' Septal: 0.10 m/s LA Area: 24.3 cm2 MV E/E' Septal: 6.50 MV E/E' Lateral: 7.00 MV VTI: 22.60 cm MR Vena Contracta: 0.2 cm MR ERO: 0.080 cm2 MR PISA radius: 5 mm MR Reg. Volume: 17 ml MR Reg. Fraction: 6 % Additional Vessels Name Value Ao Ascendin.4 cm Findings: Left Ventricle: Normal size left ventricle. No LV hypertrophy. Normal global systolic LV function. EF is 55 %. No regional wall motion abnormality. Grade 2 diastolic dysfunction (pseudonormalized LV filling pattern). Right Ventricle: Normal size right ventricle. There is a moderator band noted in the right ventricle. Left Atrium: The left atrium is mildly to moderately dilated. Right Atrium: The right atrium is mildly dilated. Mitral Valve: Mild mitral annular calcification. Moderate to severe mitral regurgitation. Aortic Valve: The aortic valve is tri-leaflet. Moderate aortic cusp calcification is present. Mild to moderate aortic valve regurgitation. Tricuspid Valve: The tricuspid valve is normal in appearance and function. Moderate tricuspid regurgitation is present. Pulmonic Valve: The pulmonic valve is normal in appearance and function. Trivial pulmonic valve regurgitation. Aorta: The aorta is normal. Pericardium: No pericardial effusion. (No Signature Object) Patient: NOHEMI URBIE Study Date: 12/25/2017 Page 2 of 2 07:23 AM [id number]
[2017-12-25 12:44] VITALS: BP 115/63
--- NOTE | 2017-12-25 14:36 | ASDISCHSUM ---
Discharge Information Plan Status:Home with No Needs Medically Cleared to Leave: Discharge Date: CM D/C Disposition:Home, Routine, Self-Care ADT D/C Disposition:Home, Routine, Self-Care Projected Discharge Date: Transportation at D/C: Discharge Delay Reason: Follow-Up Date: Discharge Slot: Final Diagnosis: Placement Information Patient Contact Information Contact Name:THIEN Relationship: Address:[address] [address] Work Phone: City:[place] Alternate Phone: State/Zip Code:[place] [address] Email: Financial Information Financial Class:Medicare Primary Plan Desc:MEDICARE OUTPATIENT Primary Plan Number:[id number] Secondary Plan Desc:[employer]ARP/MDR SUPPLEMENT Secondary Plan Number:[id number] Assessment Information BC CM Progress Note CM Note CM Note Notes: CM reviewed chart for D/C planning. Pt is a 76 y/o male with hx of CAD, pAF, HTN and hypothroid presented at the ED with 1 week of exertional chest pain. Hx of stents to all 3 major coronary territoriesbtwn 1999 and 2002. Pt is retired and lives at home with his , Leyla #[phone]. Pt was most recently D/Sami from the hospital 11/17/17 having tried Solatol under observation. There were no CM need identified at that time. CM to follow. D/C Plan: TBD Date Signed: 12/25/2017 09:34 AM Electronically Signed By:Dinorah Joe LACE NADEEM Length of stay for Answers: Less than 1 day current admission Acuity / Level of Answers: No Care: Did the patient have an inpatient admission? Comorbidities - select Answers: Other Notes: CAD, pAF, HTN all that apply # of Emergency department Answers: 1-2 visits in the last 6 months Score: 2 Date Signed: 12/25/2017 02:35 PM Electronically Signed By:Dinorah Joe Intervention Information
--- NOTE | 2017-12-25 20:18 | PDDCSUM ---
Discharge Summary Discharge Summary: Date of Admission: 12/24/2017 Date of Discharge: 12/25/2017 Consultations: none Procedures: none Hospital Course by Diagnosis: 1. Chest pain: Atypical. Ultimately this was felt to be musculoskeletal in nature. No objective evidence of ischemia on ECG/serial troponins. Given a normal nuclear stress with MPI 08/2017 and TTE during this admission without regional wall motion abnormalities, additional ischemic evaluation was not felt to be warranted. Additionally, he is compliant with anticoagulation making PE less likely. 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 2. Atrial fibrillation: Symptomatic and difficult to control in the past however his typical symptoms usually do not consist of chest pain so unlikely to be contributing to above. He remained in sinus rhythm during this stay and was discharged on diltiazem and apixaban. He follows with Dr Raymundo. 3. CAD: History of stents to all 3 major coronary territories between 1999 and 2002. Cardiac cath in 2012 demonstrated patency of all stented sties. Nuclear stress test performed 09/15 revealed no areas of reversible ischemia. Continues aspirin, statin. 4. Moderate-severe MR: Progressed from mild on 2007 TTE. Follow up with cardiology for surveillance and potential intervention. 4. Hypothyroid: Continued LTX. Items for Follow up: 1. Follow up with Dr Raymundo to determine plan for atrial fibrillation management 2. Assess for ongoing chest pain, consider modifying anti-anginal therapy 3. Surveillance of MR Pending Items at Discharge: none Medications at Discharge: ASA 81, simvastatin 20, diltiazem 240 daily, apixaban 5 bid, levothyroxine 112mcg daily, SLN PRN
== END 2017-12-25 15:30 | disposition home or self-care (01) ==
LOC: F2W 20:23
PROVIDERS: ADMIT Internal Medicine; ATTEND Internal Medicine
DX: R07.9 Chest pain, unspecified (principal); I48.0 Paroxysmal atrial fibrillation; I25.10 Atherosclerotic heart disease of native coronary artery without angina pectoris; E03.9 Hypothyroidism, unspecified; Z79.01 Long term (current) use of anticoagulants; Z95.5 Presence of coronary angioplasty implant and graft; Z87.891 Personal history of nicotine dependence
CPT/HCPCS: 71046; 93005; 93306; 99291; G0378; 84484-PO

== ENCOUNTER → 2018-02-01 | Outpatient (CLI) | payer OTHER, MEDICARE ==
[~2018-02-01] MED LIST: IOPAMIDOL (ISOVUE 370) 100 ML BTL IV ONE
== END ==
LOC: FIMAGING 12:50
PROVIDERS: ATTEND Internal Medicine Cardiovascular Disease
DX: I48.91 Unspecified atrial fibrillation (principal); I70.0 Atherosclerosis of aorta; I25.10 Atherosclerotic heart disease of native coronary artery without angina pectoris
CPT/HCPCS: 75572; Q9967

== ENCOUNTER 2018-03-22 06:58 | Observation (INO) | payer OTHER, MEDICARE ==
[2018-03-22] MEDS ORDERED: NS 1,000 ML IV ONE (07:01)
[2018-03-22 07:26] LABS: PLATELET COUNT 228 10^3/uL (150-400)
[2018-03-22 07:34] LABS: INR 1.06 (0.83-1.16)
--- NOTE | 2018-03-22 07:57 | PDANEPAE ---
ANE History of Present Illness here for ablation ANE Past Medical History - Cardiovascular History Hx Hypertension: Yes Hx Arrhythmias: Yes Hx Chest Pain: No Hx Coronary Artery / Peripheral Vascular Disease: Yes Hx CHF / Valvular Disease: Yes Hx Palpitations: No - Pulmonary History Hx COPD: No Hx Asthma/Reactive Airway Disease: No Hx Recent Upper Respiratory Infection: No Hx Oxygen in Use at Home: No Hx Sleep Apnea: No - Endocrine History Hx Diabetes: No Hypothyroid: No Hyperthyroid: No - Renal History Hx Renal Disorders: No - Liver History Hx Hepatic Disorders: No - Neurological & Psychiatric Hx Hx Neurological and Psychiatric Disorders: No - Congenital Disorder History Hx Congenital Disorders: No ANE Review of Systems Review of systems is: negative Review of Systems: - Exercise capacity Exercise capacity: >=4 METS ANE Patient History - Allergies Allergies/Adverse Reactions: No Known Allergies Allergy (Verified 02/02/18 15:17) - Home Medications Home medications: home medication list seen and reviewed Home Medications: Aspirin [Aspirin 81mg (*)] 81 mg PO HS 06/01/12 [Last Taken 12/23/17] Simvastatin [Zocor 20 mg] 20 mg PO DAILY18 06/01/12 [Last Taken 12/23/17] Diltiazem HCl [Cartia XT 240mg] 240 mg PO DAILY 11/15/17 [Last Taken 12/24/17 08 :00] Apixaban [Eliquis] 5 mg PO BID 12/24/17 [Last Taken 12/24/17 08:00] Herbals/Supplements -Info Only 1 ea PO DAILY 12/24/17 [Last Taken 12/24/17] Levothyroxine [Synthroid 112 mcg (*)] 112 mcg PO DAILY06 12/24/17 [Last Taken ] Multivitamins [Multivitamin (*)] 1 each PO DAILY 12/24/17 [Last Taken 12/24/17] [place]-3 Fatty Acids [Fish Oil 1000 mg (*)] 1,000 mg PO DAILY 12/24/17 [Last Taken 12/24/17] Glucosa Ruiz 2Kcl/Chondroitin Ruiz [Glucosamine Chondroitin Caplet] 1 each PO DAILY 02/02/18 [Last Taken Unknown] - NPO status NPO Status: no food or drink >8 hours - Smoking Hx Smoking Status: Former smoker ANE Labs/Vital Signs - Labs Result Diagrams: 03/22/18 07:15 03/22/18 07:15 - Vital Signs Vital Signs: reviewed preoperatively; see RN documention for details Height: 191 cm Weight: 77.1 kg ANE Physical Exam - Airway Neck exam: FROM Mallampati Score: Class 1 - Pulmonary Pulmonary: no respiratory distress - Cardiovascular Cardiovascular: irregularly irregular - ASA Status ASA Status: III ANE Anesthesia Plan Anesthesia Plan: general endotracheal anesthesia
[2018-03-22] MEDS ORDERED: HEPARIN/DEXTROSE 25,000 UNIT/500 ML BAG ONE (08:13)
[2018-03-22] MEDS ORDERED: HEPARIN 10,000 UNIT/10 ML MDV (1,000 UNIT/ML) ONE (08:13)
[2018-03-22] MEDS ORDERED: LIDOCAINE 1% 300 MG/30 ML SDV ONE (08:13)
[2018-03-22] MEDS ORDERED: BUPIVACAINE 0.75% 10 ML SDV ONE (08:14)
[2018-03-22] MEDS ORDERED: IOPAMIDOL (ISOVUE-300) 100 ML BTL ONE (08:14)
[2018-03-22] MEDS ORDERED: MIDAZOLAM 2 MG/2 ML VIAL IVP ONE (08:36)
[2018-03-22] MEDS ORDERED: MIDAZOLAM 2 MG/2 ML VIAL ONE (08:36)
--- NOTE | 2018-03-22 08:44 | PDGENHP ---
History & Physical Chief Complaint: symptomatic afib Relevant Physical Exam: s1s2 irreg cta ao3 Cardiorespiratory Assessment: for reta, cb afib ablation
[2018-03-22] MEDS ORDERED: PROPOFOL/EMULSION 500 MG/50 ML BOTTLE IV ONE (09:02)
[2018-03-22] MEDS ORDERED: ROCURONIUM 50 MG/5 ML VIAL ONE (09:03)
[2018-03-22] MEDS ORDERED: PHENYLEPHRINE HCL 100 MCG/ML SYR ONE ×2 (09:03→10:34)
[2018-03-22] MEDS ORDERED: fentaNYL 100 MCG/2 ML INJ ONE (10:08)
[2018-03-22] MEDS ORDERED: PROPOFOL 200 MG/20 ML VIAL ONE ×2 (10:49→13:07)
[2018-03-22] MEDS ORDERED: PROTAMINE SULFATE 50 MG/5 ML VIAL IVP ONE (11:57)
[2018-03-22] MEDS ORDERED: ONDANSETRON 4 MG/2 ML VIAL ONE (13:29)
--- NOTE | 2018-03-22 14:01 | EPPROC ---
Electrophysiology Procedure Note: ELECTROPHYSIOLOGIC STUDY AND BALLOON-CATHETER MEDIATED CRYOABLATION EARLY PERSISTENT ATRIAL FIBRILLATION + RF ABLATION FOR LEFT ATRIAL TACHYCARDIA AND CTI ISTHMUS DEPENDENT ATRIAL FLUTTER Procedures performed: 83871-47 EP evaluation with RA/RV/LA pace/record, with arrhythmia induction 05741-43 EP evaluation with RA/RV pace record, insert/reposition catheter, with arrhythmia induction 89165 Atrial fibrillation ablation Second arrhythmia Intracardiac echocardiogram Transseptal puncture Fluoroscopy INDICATION: Paroxysmal atrial fibrillation PROCEDURE: The patient arrived in the Electrophysiology Laboratory in the fasting state. The right groin, left groin and right infraclavicular area were prepped and draped in the usual sterile fashion. Anesthesiologist administered general anesthesia Dr. Meka Groves . All catheters were placed percutaneously using the Seldinger technique and advanced into position under fluoroscopic guidance. One #7 Angolan deflectable octapolar electrode catheter was placed in the His-bundle position via the left femoral vein (2mm spacing, IVC electrode for unipolar recordings). This catheter was placed in the coronary sinus after transseptal puncture and later placed in the SVC-R subclavian vein junction to pace the right phrenic nerve during right pulmonary vein ablation. One #8 [place]olan AcuNaV ultrasound catheter was placed in the left femoral vein and advanced into the right atrium. Pt was in atrial fibrillation and could not be cardioverted (ERAF). Intracardiac echo evaluation of the left atrium and pulmonary veins was performed. Baseline ACT was drawn and heparin bolus was administered and heparin drip was started prior to transseptal puncture. ACT was checked every 15 minutes and maintained in the range of 350-400 seconds. One 14Fr short sheath was placed in the right femoral vein. One 8Fr SL1 sheath was advanced into the right atrium via the 14Fr short sheath. Transseptal puncture was performed under intracardiac ultrasound, fluoroscopic and hemodynamic guidance placing the sheath into the left atrium. Pollard RF needle ( C0 curve) was used. The mean left atrial pressure was 8 mmHg. 3D map of left atrial and pulmonary veins was performed using PentaRay catheter. The SL1 sheath was exchanged for a Uppidytronic Flexcath sheath using an Amplatz stiff guide wire. A 28 mm Cryoballoon catheter with a 20 mm Achieve catheter was placed via the sheath into the left atrium. Intracardiac ultrasound and PV angiograms were used to assist in placing the mapping catheter at the antrum of the pulmonary veins. All pulmonary veins were re-isolated successfully using cryoballoon ablation using freeze/thaw/freeze cycles at 2-3-minute intervals, with good time-to- effect of isolation. Coumadin ridge/Ligament of Patrick region was ablated. Pre and post pulmonary vein recordings were measured on the spiral Achieve catheter to ensure complete pulmonary vein isolation. During the right-sided ablation, phrenic nerve pacing was performed to assess the phrenic nerve strength (manually and with ICE visualization of liver movement during phrenic capture) and the phrenic nerve was intact throughout the right-sided ablation and at the end of the procedure. An esophageal temperature probe (12 electrode, Circa) was placed by the anesthesiologist at the beginning of the procedure. Esophageal temperature was monitored continuously and cryoablation was interrupted if esophageal temperature was <15 C. After PVI of LSPV (1st vein to be isolated) atrial fibrillation changed to left atrial tachycardia CL 260 ms. Entrainment mapping of multiple sites in LA and RA (Halo catheter) proved that this was a left atrial tachycardia. High resolution 3D map was obtained using Mobi sheath and Pentaray catheter. This showed that this was a left atrial roof tachycardia based on activation and voltage mapping. Ablation at the LA roof increased TCL and then terminated AT. Catheters were withdrawn into the right atrium. There was conduction across cava tricuspid isthmus line. RF applications in the mid tricuspid isthmus terminated conduction across the cava tricuspid isthmus and bidirectional block was achieved. ICE imaging post ablation was consistent with pre ablation imaging with no changes noted, moreover there was no left atrial/left ventricular thrombus and no pericardial effusion. The catheters were withdrawn. Protamine was given. The sheaths were removed and subcutaneous pursestring suture and manual pressure was used for hemostasis. The patient was recovered from anesthesia. There were no complications. The patient was arousable and moving all four extremities at the end of the procedure. CONCLUSIONS: 1. Persistent atrial fibrillation. 2. Successful pulmonary vein re-isolation procedure (left and right pulmonary vein antrum) using cryoballoon ablation. 3. Left atrial tachycardia, successfully terminated by ablation along left atrial roof. 4. Successful ablation of cavo tricuspid isthmus achieving bidirectional conduction block. 5. No apparent complications. Patient Problems: Problems Problem Status Onset Chest pain Acute Atrial fibrillation and flutter Acute
--- NOTE | 2018-03-22 14:03 | POSTANESTH ---
Post Anesthetic Evaluation Cardiovascular Status: Normal, Stable Respiratory Status: Normal, Stable Level of Consciousness/Mental Status: Mildly Sleepy, Arousable Pain Control: Adequate, Prn Tx Ordered Nausea/Vomiting Control: Adequate, Prn Tx Ordered Complications Possibly Related to Anesthesia: None Noted
[2018-03-22] MEDS ORDERED: KETOROLAC 15 MG/1 ML SDV IVP ONE ×2 (15:15→15:30)
[2018-03-22] MEDS: APIXABAN 5 MG TAB PO SCH (21:53)
[2018-03-22] MEDS: ASPIRIN 81 MG CHEWABLE TAB PO SCH (21:53)
[2018-03-22] MEDS: PANTOPRAZOLE SODIUM 40 MG TAB PO SCH (21:53)
[2018-03-23 04:42] LABS: PLATELET COUNT 194 10^3/uL (150-400)
[2018-03-23] MEDS ORDERED: ALBUMIN 5% 250 ML BOTTLE IV ONE (07:27)
[2018-03-23] MEDS: LEVOTHYROXINE 112 MCG TAB PO SCH (07:58)
[2018-03-23] MEDS: APIXABAN 5 MG TAB PO SCH ×2 (08:30→20:44)
[2018-03-23] MEDS: ATORVASTATIN CALCIUM 10 MG TAB PO SCH (08:30)
[2018-03-23] MEDS: PANTOPRAZOLE SODIUM 40 MG TAB PO SCH (08:30)
--- NOTE | 2018-03-23 09:26 | ECHO ---
[email or web address] [address] [address] Main: [phone] Fax: Transthoracic Echocardiogram Name: NOHEMI URIBE MR#: [id number] Study Date: 03/23/2018 Study Time: 07:45 AM Date of : 1940 Age: 77 year(s) Height: 190.5 cm (75 in.) Weight: 76.66 kg (169 lb.) BSA: 2.04 m2 Gender: Male Examination: Echo Indication: F/U Post EP Study Image Quality: Adequate Contrast: Requested by: Dandre Raymundo BP: 124 mmHg/77 mmHg Heart Rate: Rhythm: Indication: F/U Post EP Study Procedure Staff Montessori Teacher: Jacquelyn Spear RDCS Reading Physician: Cierra Beatty MD Requesting Provider: Conclusions: Normal size left ventricle. No LV hypertrophy. The ejection fraction is estimated to be 50-55 %. No regional wall motion abnormality. Normal size right ventricle. Normal RV function. The left atrium is mildly dilated. Left to right color flow seen across IAS, consistent with transseptal puncture. The right atrium is mildly dilated. Moderate to severe mitral regurgitation. Mild aortic valve regurgitation is present. No aortic valve stenosis is present. Moderate tricuspid regurgitation is present. Right ventricular systolic pressure measures 30mmHg. No pericardial effusion. Compared with November 2017 overall similar findings Measurements: Chambers Valvular Assessment AV/MV Valvular Assessment TV/PV Normal Normal Normal Name Value Range Name Value Range Name Value Range Ao Kaela (2D): 3.3 cm (1.4 cm-2.6 AV Vmax: 1.09 m/s (1 m/s-1.7 TR Vmax: 2.52 mm/s ( - ) cm) m/s) TR PGmax: 25 mmHg ( - ) IVSd (2D): 0.8 cm (0.6 cm-1.1 AV maxP mmHg ( - ) syst. PAP: 30 mmHg ( - ) cm) AV meanP mmHg ( - ) PV Vmax: 0.83 m/s (0.6 m/s-0.9 LVDd (2D): 5.0 cm (4.2 cm-5.9 ALO (VTI): 2.5 cm ( - ) m/s) cm) MV E Vmax: 0.69 m/s ( - ) PV PGmax: 3 mmHg ( - ) LVDs (2D): 3.8 cm (2.1 cm-4 MV PHT: 0.038 s ( - ) cm) MVA (PHT): 5.8 s ( - ) Patient: NOHEMI URIBE Study Date: 03/23/2018 Page 1 of 3 07:45 AM LVPWd (2D): 0.9 cm (0.6 cm-1 cm) LVOTd 2.4 cm 2.4 cm mm EF Range: 50-55 % RVDd(2D): 2.7 cm (1.9 cm-3.8 cmmm) Continued Measurements: Chambers Valvular Assessment AV/MV Valvular Assessment TV/PV Name Value Name Value Name Value LADs: 3.7 cm MV DecTime: 123 m/s CVP (est.): 5 mmHg LADs Lon.4 cm MR ERO: 0.220 cm2 LA Area: 25.0 cm2 MR PISA radius: 7 mm LA Volume: 83 ml MR Reg. Volume: 33 ml LA Volume Index: 40.7 ml/m2 RA Area: 20.0 cm2 Additional Vessels Name Value Ao Ascendin.3 cm Inferior Vena Cava: 1.5 cm Findings: Left Ventricle: Normal size left ventricle. No LV hypertrophy. Low normal left ventricular systolic function. The ejection fraction is estimated to be 50-55 %. No regional wall motion abnormality. Unable to assess diastolic dysfunction due to cardiac arrhythmia. Right Ventricle: Normal size right ventricle. Normal RV function. Left Atrium: The left atrium is mildly dilated. Left to right color flow seen across IAS, consistent with transseptal puncture. Right Atrium: The right atrium is mildly dilated. Mitral Valve: The mitral valve is normal in appearance and function. Moderate to severe mitral regurgitation. No mitral stenosis is present. Aortic Valve: The aortic valve is tri-leaflet. Moderate aortic cusp calcification is present. Mild aortic valve regurgitation is present. No aortic valve stenosis is present. Tricuspid Valve: The tricuspid valve is normal in appearance and function. Moderate tricuspid regurgitation is present. The pulmonary artery pressure is normal. Right ventricular systolic pressure measures 30mmHg. Pulmonic Valve: The pulmonic valve is normal in appearance and function. Trivial pulmonic valve regurgitation. Aorta: The aorta is normal. Normal size aortic root measuring 3.3 cm. Normal size ascending aorta measuring 3.3 cm. IVC: The IVC is normal sized. Pericardium: No pericardial effusion. (No Signature Object) Patient: NOHEMI URIBE Study Date: 03/23/2018 Page 2 of 3 07:45 AM Patient: NOHEMI URIBE Study Date: 03/23/2018 Page 3 of 3 07:45 AM [id number]
[2018-03-23] MEDS ORDERED: AMIODARONE A.FIB-LOAD DOSE(ORDER 1/3) PREMIX IV ONE (11:30)
[2018-03-23] MEDS ORDERED: AMIODARONE A.FIB-6HR INFSN (ORDER 2/3) PREMIX IV ONE (11:30)
--- NOTE | 2018-03-23 15:34 | PDCARPN ---
Cardiology Progress Note Chief Complaint: Patient reports fatigue Assessment/Plan: Assessment: 69-year-old male with significant past history paroxysmal atrial fibrillation, hypertension, CAD previous PCI (normal MPI study 5 months ago), hypothyroidism, and hypercholesteremia. He has been intolerant to antiarrhythmic therapy including propafenone to sotalol. He does have a remote history of prior RF ablation for atrial fibrillation, but has been noted to spend more time in atrial fibrillation sinus rhythm the recent past. On 03/22/2018, underwent cryo balloon ablation of the pulmonary veins, left atrial tachycardia termination by ablation, (along left atrial roof), successful ablation of cavo tricuspid isthmus for a flutter. 03/23/2018: Patient went into AFib/flutter with rapid ventricular response this morning. He has been started on IV amiodarone, with better rate control. He denies of any chest pressure, pain, shortness of breath, or symptoms suggesting of ischemia. Echocardiogram (03/23/2018) showed normal LV size, no LVH, EF 50-55% with no wall motion abnormalities. RV size and function within normal limits. LA was mildly dilated, left to right flow seen across intra- atrial is septum consistent with transseptal puncture. RA is mildly dilated, moderate to severe MR, mild AI, moderate TR, RVSP was 30 mm Hg. No pericardial effusion. Access site from electrophysiology study, bilateral groins, with no redness, swelling, drainage, or ecchymosis. No auscultated bruits. Pursestring sutures removed intact. Troponin elevated, this a.m. At 5.760, expect after ablation procedure. Plan: 1. Atrial fibrillation/flutter: Patient back in AFib a flutter last evening. Noted RVR. Currently on IV amiodarone drip with rate control. Discussed with Dr. Raymundo, plan on continuing amiodarone drip for today, then transition over to oral amiodarone, with plans for patient to stay on for 1 month. If patient remains in AFib/flutter by tomorrow morning, will plan for him to undergo MONI/ cardioversion. He will be made NPO after midnight. He has been resumed on home dose of Eliquis. He is on Protonix, which she will remain on 6 weeks post procedure. 2. CAD: Patient with known history of CAD, denies of any chest pain, pressure, or symptoms suggesting of ischemia. Recent MPI study showing no signs of ischemia No wall motion noted on echocardiogram. Electrocardiogram with no acute ST or T-wave abnormalities suggesting of ischemia. Patient with noted mild troponin after ablation which is expected. Continue on home anti-platelet therapy of aspirin at 81 mg p.o. Q.day. Secondary risk prevention with atorvastatin 3. Hypertension: Blood pressure appears well controlled at current time, adjust medications if necessary. 4. Mitral regurgitation: Noted to be moderate to severe, noted to be mild off of most recent echo in office. Potentially worsen due to arrhythmia. Patient shows no signs of heart failure. Will recommend repeated echocardiogram in a year 4. Hyperlipidemia: Resume patient's home statin dose. 5. Hypothyroidism: Patient has been resumed on home Synthroid, evaluate TSH in a.m.. 6. DVT prophylaxis: Andrez's, SCDs, and resumed on home dose of Eliquis. 7. Code status: Patient is a full code. Will plan for patient to be transferred to PCU. 03/23/18 15:30 Subjective: Patient denies of any chest pressure, pain, SOB, palpitations, lightheadedness, near-syncope or syncopal events. Reports ongoing fatigue symptoms. Reviewed/Discussed With: other (Dr. Raymundo and Dr. Beatty) Objective: Vital Signs (8 Hrs) Temp Pulse Resp BP Pulse Ox 03/23/18 14:00 93 20 137/80 H 94 03/23/18 12:00 91 22 H 142/84 H 96 03/23/18 10:00 122 H 20 133/94 H 92 03/23/18 09:00 65 20 114/87 H 100 03/23/18 07:43 37 C 121 H 16 134/84 H 94 Intake/Output (24 Hrs) 03/22/18 03/23/18 03/24/18 05:59 05:59 05:59 Intake Total 1800 400 Balance 1800 400 Intake: Oral (ml) 1500 400 IV Intake (ml) 300 Other: Weight 77.1 kg Number of Voids Toilet 2 1 Result Diagrams: 03/23/18 04:15 03/23/18 04:15 Cardiac Labs: Cardiac Lab Results (72 Hrs) 03/23/18 04:15 Troponin I 5.760 H - Physical Exam Constitutional: WDWN, healthy appearing, no apparent distress Ears, Nose, Mouth, Throat: moist mucous membranes Cardiovascular: no rubs, systolic murmur (2/6 along left sternal border), irregularly irregular (AFib/flutter), pulses symmetric bilat, No jugular vein distention, No carotid bruit Peripheral Pulses: 2+: carotid (R), carotid (L), dorsalis-pedis (R), dorsalis- pedis (L) Respiratory: clear to auscultate bilat, no crackles, no wheezes, other (Lungs are clear to auscultation, no rhonchi, rales, or wheezing noted, no accessary muscle use, no intercostal muscle retraction noted) Gastrointestinal: normoactive bowel sounds, no tenderness, no masses Skin: warm, no edema, other (Bilateral groin sites, catheter insertion sites, with no redness, swelling, drainage, ecchymosis, or hematoma. No auscultated bruits. Pursestring sutures removed intact.) Neurologic: AAOx3, CN II-XII grossly intact Psychiatric: cooperative, interactive, following commands ICD10 Worksheet Patient Problems: Problems Problem Status Onset Chest pain Acute Atrial fibrillation and flutter Acute
[2018-03-23] MEDS ORDERED: AMIODARONE A.FIB-18HR INFSN (ORDER 3/3) IV ONE (17:30)
[2018-03-23] MEDS: ASPIRIN 81 MG CHEWABLE TAB PO SCH (20:44)
[2018-03-24] MEDS: LEVOTHYROXINE 112 MCG TAB PO SCH (05:37)
[2018-03-24 07:48] VITALS: BP 147/87
[2018-03-24] MEDS: ATORVASTATIN CALCIUM 10 MG TAB PO SCH (08:04)
[2018-03-24] MEDS: PANTOPRAZOLE SODIUM 40 MG TAB PO SCH (08:04)
[2018-03-24] MEDS: APIXABAN 5 MG TAB PO SCH (08:04)
--- NOTE | 2018-03-24 09:14 | CPEKG ---
Test Reason : OPEN Blood Pressure : / mmHG Vent. Rate : 095 BPM Atrial Rate : 119 BPM P-R Int : 059 ms QRS Dur : 101 ms QT Int : 374 ms P-R-T Axes : -58 042 014 degrees QTc Int : 470 ms Atrial fibrillation Atrial fibrillation is new in comparison to prior ECG Confirmed by Ryan Wilson ([id number]) on 03/24/2018 9:14:06 AM Referred By: Confirmed By:Ryan Wilson
--- NOTE | 2018-03-24 09:26 | CPEKG ---
Test Reason : OPEN Blood Pressure : / mmHG Vent. Rate : 067 BPM Atrial Rate : 059 BPM P-R Int : 144 ms QRS Dur : 115 ms QT Int : 444 ms P-R-T Axes : 072 074 030 degrees QTc Int : 469 ms Sinus rhythm Incomplete right bundle branch block Sinus rhythm has replaced atrial fibrillation noted on prior ECG Confirmed by Ryan Wilson ([id number]) on 03/24/2018 9:26:11 AM Referred By: Confirmed By:Ryan Wilson
[2018-03-24] MEDS ORDERED: AMIODARONE HCL 200 MG TAB PO SCH (10:15)
--- NOTE | 2018-03-24 12:03 | GDS ---
ADMISSION DIAGNOSES: 1. Persistent atrial fibrillation. 2. Coronary artery disease. 3. Hypercholesteremia. 4. Hypertension. 5. Prostate cancer. 6. Mitral regurgitation. DISCHARGE DIAGNOSES: 1. Paroxysmal atrial fibrillation. 2. Atrial flutter. 3. Atrial tachycardia. 4. Status post pulmonary vein isolation procedure using cryoballoon ablation for atrial fibrillation . 5. Status post termination of atrial tachycardia by ablation along left atrial roof. 6. Successful ablation of cavotricuspid isthmus achieving bidirectional block for atrial flutter. 7. Coronary artery disease. 8. Hypertension. 9. Hyperglycemia. 10. Prostate cancer. 11. Mitral regurgitation. PROCEDURES PERFORMED DURING HOSPITALIZATION: 1. Electrocardiogram. 2. Electrophysiology study. 3. Pulmonary vein isolation procedure using cryoballoon ablation for atrial fibrillation. 4. Successful termination by ablation of atrial tachycardia along left atrial roof. 5. Successful ablation of cavotricuspid isthmus achieving bidirectional flow for atrial flutter. 6. Echocardiogram. BRIEF HISTORY: Please see H and P. Briefly, the patient is a 77-year-old male who was noted to have paroxysmal atrial fibrillation. He has been noticing more times of being in atrial fibrillation nydia hailey not. He has been intolerant to antiarrhythmics of propafenone and sotalol in the past. He has h ad a previous RF ablation years ago, but continues to have atrial fibrillation. He was seen by Dr. Letty marks and felt to be an appropriate candidate to undergo repeat ablation. HOSPITAL COURSE: The patient was admitted through the CVC, prepped for procedure, and taken to elect rophysiology lab. There, Dr. Raymundo performed EP procedure, identifying pulmonary veins, followed by cr yoballoon ablation of the pulmonary veins for atrial fibrillation. Next, he was noted to have atrial tachycardia, in which he was able to successfully terminate by ablation along the left atrial roof. Next, the patient was noted to have A flutter, in which he was successfully able to ablate the cavot ricuspid isthmus achieving bidirectional conduction block. No apparent complications. The patient w as transferred to the ICU for overnight observation. There, he remained stable, unfortunately he did return back into atrial fibrillation with rapid ventricular response with rates into the 140. He di d report some lightheadedness but denied of any chest pain or pressure. The patient was started on a n amiodarone drip. Due to his rapid rate, it was decided that the patient would stay 1 more night, w ith the idea of IV amiodarone loading and if no conversion back into sinus by this morning of him und ergoing MONI cardioversion. Fortunately, he did convert back into sinus rhythm last evening, where he has maintained stable. Currently, he has been up and walking the unit, denying of any chest pain, p ressure or symptoms suggesting of ischemia. He has had no bleeding issues. PHYSICAL EXAMINATION: GENERAL APPEARANCE: Today, a medium built, well-groomed male. He i s alert and oriented to person, place, time, situation. Appears to be under no acute distress. CURR ENT VITAL SIGNS: Blood pressure of 147/87; heart rate of 58, sinus rhythm on the monitor; respiratio ns 18; saturating 98% on room air; temperature 36.5 degrees Celsius. HEENT: Head is normocephalic. Lips and tongue are pink and moist with no signs of cyanosis. Conjunctivae pink. NECK: Trachea is midline. +2 carotid pulses bilateral. No auscultated bruits. No jugular vein distention. RESPIRA TORY: Lungs are clear to auscultation. No rhonchi, rales or wheezes. No accessory muscle use. No intercostal muscle retraction noted. CARDIAC: Regular rate, regular rhythm. S1, S2. No S3, S4, 2/ 6 systolic murmur noted along the left sternal border. ABDOMEN: Soft, nontender. Bowel sounds x4 q uadrants. No organomegaly. No palpable masses. SKIN: [place], warm, dry. No cyanosis. No clubbing. No peripheral edema. VASCULAR: +2 carotids bilateral, +2 radials bilateral, +2 dorsal pedal and p osterior tibial pulses bilateral. CATHETER INSERTION SITE: Bilateral groin sites, with no redness, swelling, drainage, ecchymosis, or hematoma. No auscultated bruit noted over either site. LABORATORY STUDIES: Laboratory studies drawn yesterday showed WBC of 6.73, hemoglobin 12.9, hematocr it 37.7, platelet count of 194. Today, labs showed sodium of 139, potassium 4.3, chloride 104, CO2 2 6, BUN 24, creatinine 1.0, glucose 91, calcium 8.9, magnesium 2.1, total bilirubin 0.3, AST 35, ALT 2 9, alkaline phosphate 53, total protein 5.4, albumin 3.1, TSH 1.410. Troponin of 2.180, which he is expected to have elevated troponin after ablation procedure. STUDIES: Electrophysiology and ablation procedures as mentioned above. Electrocardiogram this morning showing sinus rhythm , normal axis, no significant ST or T-wave abnorm alities. Echocardiogram done on the morning of March 23 showing normal LV size, no LVH, normal LV systolic function with EF of 50% to 55%, normal RV function, LA is mildly dilated , RA was mildly dilated, th ere was noted to be a [id number] color-flow shunt across the interatrial septum consistent with a transseptal puncture. The patient was noted to have moderate to severe MR, mild AI, moderate TR, RVS P was 30 mmHg. DISCHARGE DISPOSITION: Patient will be discharged home in stable condition. He is under activity re strictions of not lifting more than 10 pounds for the next week and no strenuous activity for the nex t 2 weeks. DISCHARGE MEDICATIONS: Please see discharge med reconciliation sheet. Note, patient's previous dilt iazem has been discontinued. He has been started on amiodarone at 200 mg p.o. daily per the request of Dr. Raymundo. He will be stay on this for 30 days. He has been resumed on anticoagulation of Eliquis. He also will be on Protonix for 6 weeks post ablation. DISCHARGE INSTRUCTIONS: Post electrophysiology and cryoballoon ablation discharge instructions were gone over with the patient and his , including monitoring for signs of infection, bleeding precau tions, activity restrictions, and medication compliancy. The patient has a followup appointment set up with Dr. Raymundo in approximately 2 weeks. At the time of discharge, patient verbalizes understanding of instructions and has no questions or concerns. The patient has been told that if any problems or concerns come up post discharge, he is to notify our office or return to the hospital. Total time spent on discharge greater than 30 minutes. /[id number]/MODL
--- NOTE | 2018-03-24 16:24 | CPEKG ---
Test Reason : OPEN Blood Pressure : / mmHG Vent. Rate : 123 BPM Atrial Rate : 123 BPM P-R Int : 162 ms QRS Dur : 099 ms QT Int : 328 ms P-R-T Axes : 104 102 -15 degrees QTc Int : 470 ms Sinus tachycardia Multiform ventricular premature complexes Right axis deviation Borderline T abnormalities, inferior leads ST elevation, consider inferior injury Incomplete right bundle branch block Confirmed by Ryan Wilson ([id number]) on 03/24/2018 4:24:16 PM Referred By: Confirmed By:Ryan Wilson
--- NOTE | 2018-03-25 12:17 | CPEKG ---
Test Reason : OPEN Blood Pressure : / mmHG Vent. Rate : 056 BPM Atrial Rate : 056 BPM P-R Int : 159 ms QRS Dur : 105 ms QT Int : 466 ms P-R-T Axes : 067 061 014 degrees QTc Int : 450 ms Sinus rhythm Confirmed by Ryan Wilson ([id number]) on 03/25/2018 12:17:13 PM Referred By: Confirmed By:Ryan Wilson
== END 2018-03-24 12:48 | disposition home or self-care (01) ==
LOC: FCATH 06:58 → F2N 14:02 → F2W 03-23 18:30
PROVIDERS: ADMIT Internal Medicine Cardiovascular Disease; ATTEND Internal Medicine Cardiovascular Disease
PROC: B245ZZ4 Ultrasonography of Left Heart, Transesophageal (ICD-10-PCS; principal; 2018-03-22)
PROC: 02583ZZ Destruction of Conduction Mechanism, Percutaneous Approach (ICD-10-PCS; principal; 2018-03-22)
PROC: 02573ZZ Destruction of Left Atrium, Percutaneous Approach (ICD-10-PCS; principal; 2018-03-22)
PROC: 02H73MZ Insertion of Cardiac Lead into Left Atrium, Percutaneous Approach (ICD-10-PCS; principal; 2018-03-22)
PROC: 02K83ZZ Map Conduction Mechanism, Percutaneous Approach (ICD-10-PCS; principal; 2018-03-22)
PROC: 025T3ZZ Destruction of Left Pulmonary Vein, Percutaneous Approach (ICD-10-PCS; principal; 2018-03-22)
PROC: B2161ZZ Fluoroscopy of Right and Left Heart using Low Osmolar Contrast (ICD-10-PCS; principal; 2018-03-22)
DX: I48.0 Paroxysmal atrial fibrillation (principal); I48.92 Unspecified atrial flutter; I25.10 Atherosclerotic heart disease of native coronary artery without angina pectoris; E78.00 Pure hypercholesterolemia, unspecified; I10 Essential (primary) hypertension; I34.0 Nonrheumatic mitral (valve) insufficiency; Z85.46 Personal history of malignant neoplasm of prostate; Z79.01 Long term (current) use of anticoagulants
CPT/HCPCS: 93005; 93306; 93312; 93613; 93655; 93656; 93662; C1730; C1731; C1732; C1733; C1759; C1766; C1893; J0282; J1644; J1885; J2250; J2370; J2405; J2704; J2720; J3010; P9041; Q9967

== ENCOUNTER 2018-03-27 19:42 | Emergency (ER) | payer OTHER, MEDICARE ==
[2018-03-27] MEDS ORDERED: NS 1,000 ML IV ONE (19:57)
--- NOTE | 2018-03-27 20:11 | EDPHY ---
H & P Stated Complaint: DIARRHEA CRAMPING SINCE 03/22 S/P ABLATION, HTN Time Seen by Provider: 03/27/18 19:57 HPI/ROS: CHIEF COMPLAINT: Diarrhea and abdominal cramping HISTORY OF PRESENT ILLNESS: The patient presents to the ED with a 1 week history of diarrhea and abdominal cramping. The patient was recently in the hospital for an overnight stay following an unsuccessful ablation for atrial fibrillation. He was discharged home on anticoagulation and amiodarone. The patient reports he has had nearly daily watery diarrhea and bloating. The patient denies any fevers significant abdominal discomfort currently. The patient did have high blood pressure at home earlier this evening without chest pain, shortness of breath or significant tachycardia. The patient does report a remote history of C diff. The patient denies additional acute complaints. He was referred to the emergency department over concerns about his electrolyte status. REVIEW OF SYSTEMS: A comprehensive 10 point review of systems is otherwise negative aside from elements mentioned in the history of present illness. Source: Patient Exam Limitations: No limitations - Personal History Current Tetanus/Diphtheria Vaccine: Yes Current Tetanus Diphtheria and Acellular Pertussis (TDAP): Yes Tetanus Vaccine Date: unsure of date - Medical/Surgical History Hx Asthma: No Hx Chronic Respiratory Disease: No Hx Diabetes: No Hx Cardiac Disease: Yes Hx Renal Disease: No Hx Cirrhosis: No Hx Alcoholism: No Hx HIV/AIDS: No Hx Splenectomy or Spleen Trauma: No Other PMH: stents. cardiovasc disease. afib. prostatectomy for ca - Social History Smoking Status: Former smoker - Physical Exam Exam: General Appearance: Alert, no distress Eyes: Pupils equal and round no pallor or injection ENT, Mouth: Mucous membranes moist Respiratory: There are no retractions, lungs are clear to auscultation Cardiovascular: Regular rate and rhythm Gastrointestinal: Abdomen is soft and nontender, no masses, bowel sounds normal Neurological: A&O, normal motor function, normal sensory exam, normal cranial nerves Skin: Warm and dry, no rashes Musculoskeletal: Neck is supple nontender Extremities: symmetrical, full range of motion Constitutional: Initial Vital Signs Temperature (C) 36.6 C 03/27/18 19:48 Heart Rate 68 03/27/18 19:48 Respiratory Rate 18 03/27/18 19:48 Blood Pressure 154/86 H 03/27/18 19:48 O2 Sat (%) 96 03/27/18 19:48 O2 Delivery Mode Room Air Allergies/Adverse Reactions: No Known Allergies Allergy (Verified 03/27/18 19:53) Home Medications: Medication Instructions Recorded Aspirin [Aspirin 81mg (*)] 81 mg PO HS 06/01/12 Simvastatin [Zocor 20 mg] 20 mg PO DAILY18 06/01/12 Apixaban [Eliquis] 5 mg PO BID 12/24/17 Herbals/Supplements -Info Only 1 ea PO DAILY 12/24/17 Levothyroxine [Synthroid 112 mcg 112 mcg PO DAILY06 12/24/17 (*)] Multivitamins [Multivitamin (*)] 1 each PO DAILY 12/24/17 [place]-3 Fatty Acids [Fish Oil 1000 1,000 mg PO DAILY 12/24/17 mg (*)] Glucosa Ruiz 2Kcl/Chondroitin Ruiz 1 each PO DAILY 02/02/18 [Glucosamine Chondroitin Caplet] Amiodarone HCl [Pacerone (*)] 200 mg PO DAILY #30 tab 03/24/18 Pantoprazole Sodium [Protonix 40mg 40 mg PO DAILY #30 tab 03/24/18 (*)] Vancomycin [Vancomycin (*)] 125 mg PO QID #40 cap 03/27/18 Medical Decision Making - Diagnostics EKG Interpretation: EKG: Complete interpretation has been separately recorded in the [facility] archive. Summary impression: Sinus rhythm, incomplete right bundle branch block ED Course/Re-evaluation: The patient is nontoxic well-appearing upon arrival. He has a benign abdominal examination. He has no significant hypertension in the emergency department. His EKG demonstrates a sinus rhythm. Patient has a slightly elevated troponin which is felt to be inconsequential in the setting of his recent ablation. Patient had an IV established. He received a L of normal saline. Screening laboratory studies have been ordered. I have ordered a stool test for Clostridium difficile given the patient's history. The patient's laboratory studies are unremarkable. His stool was sent for C diff testing. The patient will contact the emergency department tomorrow to check those results. He has been provided a prescription for vancomycin in the event he has C diff. He understands not to take this antibiotic if he does not have C diff. I re-evaluated the patient at 9:40 p.m.. He continues to be stable with no significant abdominal tenderness. Differential Diagnosis: Differential diagnosis considered includes dehydration, metabolic abnormality, arrhythmia, dehydration, Clostridium difficile colitis, peritonitis, obstruction , perforation - Data Points Laboratory Results: Laboratory Results 03/27/18 20:10 03/27/18 20:10 03/27/18 03/27/18 03/27/18 21:16 20:16 20:10 WBC RBC Hgb Hct MCV MCH MCHC RDW Plt Count MPV Neut % (Auto) Lymph % (Auto) [place] % (Auto) Eos % (Auto) Baso % (Auto) Nucleat RBC Rel Count Absolute Neuts (auto) Absolute Lymphs (auto) Absolute Monos (auto) Absolute Eos (auto) Absolute Basos (auto) Absolute Nucleated RBC Immature Gran % Immature Gran # RBC/WBC/PLT Morphology Platelet Estimate Sodium 140 mEq/L mEq/L (135-145) Potassium 3.9 mEq/L mEq/L (3.3-5.0) Chloride 106 mEq/L mEq/L (97-110) Carbon Dioxide 24 mEq/l mEq/l (22-31) Anion Gap 10 mEq/L mEq/L (6-14) BUN 14 mg/dL mg/dL (7-23) Creatinine 0.9 mg/dL mg/dL (0.7-1.3) Estimated GFR > 60 Glucose 78 mg/dL mg/dL (70-100) Calcium 9.7 mg/dL mg/dL (8.5-10.4) POC Troponin I 0.15 ng/mL H ng/mL (0.00-0.08) C. difficile Tox (PCR) Pending 03/27/18 20:10 WBC 10.74 10^3/uL H 10^3/uL (3.80-9.50) RBC 4.36 10^6/uL L 10^6/uL (4.40-6.38) Hgb 13.9 g/dL g/dL (13.7-17.5) Hct 40.2 % % (40.0-51.0) MCV 92.2 fL fL (81.5-99.8) MCH 31.9 pg pg (27.9-34.1) MCHC 34.6 g/dL g/dL (32.4-36.7) RDW 12.5 % % (11.5-15.2) Plt Count 186 10^3/uL 10^3/uL (150-400) MPV 9.9 fL fL (8.7-11.7) Neut % (Auto) 93.8 % H % (39.3-74.2) Lymph % (Auto) 3.8 % L % (15.0-45.0) [place] % (Auto) 1.2 % L % (4.5-13.0) Eos % (Auto) 0.5 % L % (0.6-7.6) Baso % (Auto) 0.4 % % (0.3-1.7) Nucleat RBC Rel Count 0.0 % % (0.0-0.2) Absolute Neuts (auto) 10.07 10^3/uL H 10^3/uL (1.70-6.50) Absolute Lymphs (auto) 0.41 10^3/uL L 10^3/uL (1.00-3.00) Absolute Monos (auto) 0.13 10^3/uL L 10^3/uL (0.30-0.80) Absolute Eos (auto) 0.05 10^3/uL 10^3/uL (0.03-0.40) Absolute Basos (auto) 0.04 10^3/uL 10^3/uL (0.02-0.10) Absolute Nucleated RBC 0.00 10^3/uL 10^3/uL (0-0.01) Immature Gran % 0.3 % % (0.0-1.1) Immature Gran # 0.03 10^3/uL 10^3/uL (0.00-0.10) RBC/WBC/PLT Morphology TNP Platelet Estimate TNP Sodium Potassium Chloride Carbon Dioxide Anion Gap BUN Creatinine Estimated GFR Glucose Calcium POC Troponin I C. difficile Tox (PCR) Medications Given: Discontinued Medications Sodium Chloride (Ns) 1,000 mls @ 0 mls/hr IV EDNOW ONE; Wide Open PRN Reason: Protocol Stop: 03/27/18 19:58 Last Admin: 03/27/18 20:24 Dose: 1,000 mls Point of Care Test Results: Chemistry 03/27/18 20:16 POC Troponin I 0.15 ng/mL H ng/mL (0.00-0.08) Departure - Departure Disposition: Home, Routine, Self-Care Clinical Impression: Diarrhea Condition: Good Instructions: Acute Diarrhea (ED) Additional Instructions: 1. Please contact the emergency department tomorrow afternoon at to check the results of your C diff test. If you do have Clostridium difficile begin taking vancomycin as prescribed. If you do not have Clostridium difficile to not take vancomycin. 2. You may use Imodium as needed for diarrhea. 3. Your electrolytes are within normal limits are within normal limits as are your vital signs. Your EKG demonstrates a normal sinus rhythm. Referrals: SHIRA SMART [Primary Care Provider] - As per Instructions
[2018-03-27 20:22] LABS: PLATELET COUNT 186 10^3/uL (150-400)
--- NOTE | 2018-03-27 20:25 | CPEKG ---
Test Reason : OPEN Blood Pressure : / mmHG Vent. Rate : 069 BPM Atrial Rate : 070 BPM P-R Int : 154 ms QRS Dur : 112 ms QT Int : 421 ms P-R-T Axes : 063 037 007 degrees QTc Int : 451 ms Sinus rhythm Incomplete right bundle branch block Confirmed by Imtiaz Perez ([id number]) on 03/27/2018 8:24:59 PM Referred By: Confirmed By:Imtiaz Perez
[2018-03-27 21:49] VITALS: BP 162/92
== END 2018-03-27 21:48 | disposition home or self-care (01) ==
DX: R19.7 Diarrhea, unspecified (principal); I25.10 Atherosclerotic heart disease of native coronary artery without angina pectoris; I10 Essential (primary) hypertension; E86.9 Volume depletion, unspecified; Z79.01 Long term (current) use of anticoagulants; Z95.2 Presence of prosthetic heart valve
CPT/HCPCS: 84484-PO

== ENCOUNTER → 2018-04-07 | Outpatient (CLI) | payer OTHER, MEDICARE | LOC: BHFA 10:30 | PROVIDERS: ATTEND Internal Medicine Cardiovascular Disease | DX: I48.0 Paroxysmal atrial fibrillation (principal) ==

== ENCOUNTER → 2018-04-19 | Outpatient (CLI) | payer OTHER, MEDICARE | LOC: BHFA 09:00 | PROVIDERS: ATTEND Internal Medicine Cardiovascular Disease | DX: I48.0 Paroxysmal atrial fibrillation (principal) ==

== ENCOUNTER → 2018-08-18 | Outpatient (CLI) | payer OTHER, MEDICARE | LOC: BHLMT 16:00 | PROVIDERS: ATTEND Internal Medicine Cardiovascular Disease | DX: I48.91 Unspecified atrial fibrillation (principal) | CPT/HCPCS: 93225-PO; 93226-PO ==